=== PATIENT | female | born 1940 | race Caucasian/White ===

== ENCOUNTER 2018-12-30 11:04 | Outpatient (CLI) | payer MEDICARE, BC ==
[~2018-12-30] VITALS: Ht 170.2 cm; Wt 54.5 kg
--- NOTE | ~2018-12-30 | HEMODYNAMI ---
PATIENT:JAGJIT SRINIVASAN MEDICAL RECORD: [id number] : 40 LOCATION:[facility] ADMISSION DATE: 12/30/18 Generatedon:12/30/201813:05 Patient name: JAGJIT SRINIVASAN Patient #: [id number] SSN: D OB: 1940 Date of study: 12/30/2018 Page: Of Hemodynamic Procedure Report Patient Data Patient Demographics Procedure consent was obtained First Name: JAGJIT Gender: Female Last Name: ZARINA : 1940 Patient #: [id number] Age: 78 year(s) Race: Unknown Additional ID: [id number] Contact details Address: [address] [place] [address] State: [place] City: [place] Zip code: [address] Past Medical History Allergies: No known allergies Admission Admission Data Admission Date: 12/30/2018 Admission Time: 11:04 Procedure Procedure Types Cath Procedure Diagnostic Procedure ENZO Procedure Description Procedure Date Procedure Date: 12/30/2018 Procedure Start Time: 12:49 Procedure End Time: 12:58 Procedure Staff Name Function Kevin Andrew MD Performing Physician Marge Arias RT Monitor Cody Williamson RT Monitor Cosme San RN Nurse Uriel Lopez RN Local Bulk Driver Ramo Chapman Med Surg Nurse Alden Wilhelm MD Additional personnel Procedure Data Cath Procedure Estimated blood loss: 0 ml Procedure Complications No complications Procedure Medications Medication Administration Route Dosage Oxygen etCO2 Nasal cannula 2 l/min Refer to Anesthesia Notes for Sedation Medications Hurricaine [place] [address] Sprays Hemodynamics Rest Heart Rate: 63 (bpm) Snapshots Pre Cath Intra NCS Post Cath Vital Signs Time Heart Resp SPO2 etCO2 NIBP (mmHg) Rhythm Pain Sedation Rate (ipm) (%) (mmHg) Status Level (bpm) 12:45:15 63 20 96 0 159/89(116) NSR 0 (11) 10(A) , No pain 12:49:33 66 26 94 0 120/64(97) NSR 0 (11) 10(A) , No pain 12:53:39 72 19 100 0 134/73(100) NSR 0 (11) 9(A) , No pain 12:57:54 63 21 100 0 112/63(84) NSR 0 (11) 9(A) , No pain 12:59:45 61 22 100 0 124/62(93) NSR 0 (11) 9(A) , No pain 13:02:21 72 19 100 0 129/76(95) NSR 0 (11) 10(A) , No pain Medications Time Medication Route Dose Verified Delivered Reason Notes Effectiv eness by by 12:35:15 Oxygen etCO2 2 Kevin Aguiar used for Nasal l/min St Baron San RN procedure cannula MD 12:35:19 Refer to Kevin Aguiar Anesthesia St Baron San RN Notes for MD Sedation Medications 12:35:27 Hurricaine [address] Kevin Aguiar Per [place] Sprays [facility] Baron San RN physician MD Procedure Log Time Note 12:30:53 Uriel Lopez RN sent for patient. Start room use. 12:32:54 Time tracking: Regular hours (M-F 7:00 - 5:00) 12:32:58 Plan of Care:Hemodynamics will remain stable., Cardiac rhythm will remain stable., Comfort level will be maintained., Respiratory function will remain adequate., Patient/ family verbilizes understanding of procedure., Procedure tolerated without complication., Recovers from procedure without complications.. 12:35:15 Oxygen 2 l/min etCO2 Nasal cannula was administered by Cosme San RN; used for procedure; 12:35:19 Refer to Anesthesia Notes for Sedation Medications was administered by Cosme San RN; ; 12:35:27 Hurricaine Orlando 1 Sprays P.O. was administered by Cosme San RN; Per physician; 12:44:00 Patient received from Pre/Post Procedure Room to [facility] 1 Alert and oriented. Tansferred to table in Supine position. 12:44:02 Warm blankets applied, and rick hugger turned on for patient comfort. 12:44:02 Correct patient and procedure confirmed by team. 12:44:04 Signed procedure consent form obtained from patient. 12:44:04 ECG and BP/O2 sat monitors applied to patient. 12:44:07 Vital chart was started 12:44:10 Baseline sample Acquired. 12:44:14 Rhythm: sinus rhythm 12:44:16 Full Disclosure recording started 12:44:51 H&P Date Dictated: 12/23/2018 Within 30 days and on chart., H&P Addendum completed by physician on day of procedure. (MUST COMPLETE FOR ALL OUTPATIENTS). 12:44:53 Pre-procedure instructions explained to patient. 12:44:55 Family in waiting room. 12:44:57 Patient NPO since Midnight. 12:45:03 Patient allergic to No known allergies 12:45:06 Is the patient allergic to Iodine/contrast media? No. 12:45:07 Was the patient premedicated? Yes 12:45:12 Is patient on blood thinner?No 12:45:15 Patient diabetic? No. 12:45:21 Snore? Yes 12:45:23 Sleep apnea? No 12:45:27 Airway obstruction? No ? 12:45:36 Patient pain scale 0/10 ?. 12:45:49 IV patent on arrival in right forearm with 0.9% NaCl at KVO. 12:45:55 Lab results completed and on chart. 12:46:05 Alarms reviewed by R. N. 12:46:06 Sharps counted by scrub and verified by R.N. 12:46:07 Physician paged 12:48:48 Physician arrived 12:48:49 --------ALL STOP TIME OUT------ 12:48:49 Final Timeout: patient, procedure, and site verified with staff and physician. All members of the team are in agreement. 12:49:12 Fire Safety Assessment: A--An alcohol-based skin anteseptic being used preoperatively., C--Open oxygen or nitrous oxide is being used., E--There are other possible contributors. 12:49:17 Physical assessment completed. ASA score P 2 - A patient with mild systemic disease as per Kevin Andrew MD. 12:49:23 Sedation plan: IV Moderate Sedation Medication:Propofol 12:49:26 Alden Wilhelm MD present and monitoring patient for TIVA. 12:49:32 Procedure started. 12:49:48 Ramo Chapman Washroom Operator present for ENZO. 12:49:50 ENZO started. 12:56:28 ENZO completed. 12:56:33 Procedure ended.(Physican Out) 12:57:33 Sharps counted by scrub and verified by R.N. 12:57:49 Post-procedure physical assessment completed. ASA score P 2 - A patient with mild systemic disease as per Kevin Andrew MD. 12:57:54 Post procedure rhythm: unchanged. 12:57:58 Estimated blood loss: 0 ml 12:58:01 Post procedure instruction explained to patient.Patient verbalizes understanding. 12:58:10 Procedure and supply charges have been captured, reviewed, submitted and are correct. 12:58:32 Procedure Complication : No complications 12:58:35 Vital chart was stopped 12:58:38 See physician's report for complete and final results. 12:58:40 Report given to Pre/Post Procedure Room. 12:58:47 Patient transfered to Pre/Post Procedure Room with Stretcher. 12:58:53 Procedure ended. 12:58:53 Full Disclosure recording stopped 13:01:39 End room use (Document Last) Signature Audit [place] Stage Time Signature Unsigned Intra-Procedure 12/30/2018 Marge Arias 1:05:41 PM RT(R) Signatures Monitor : Marge Arias Signature : RT Date : Time : Monitor : Cody Williamson RT Signature : Date : Time : [address] [address]
[2018-12-30] MEDS ORDERED: NORVASC5 MG PO (11:26)
[2018-12-30] MEDS ORDERED: TENORMIN50 MG PO (11:26)
[2018-12-30] MEDS ORDERED: XANAX0.25 MG PO (11:27)
[2018-12-30 11:43] VITALS: BP 146/78; Ht 170.2 cm; Wt 54.5 kg
[2018-12-30 11:50] LABS: BASOPHILS 0.8 % (0-2); HEMATOCRIT 36.2 % (36.0-48.0); HEMOGLOBIN 12.2 g/dL (12-16); IMMATURE GRANULOCYTES 0.2 % (0-5); LYMPHOCYTES 37.2 % (15-50); MCH 34.5 pg (26.0-34.0); MCHC 33.7 g/dL (31.0-37.0); MCV 102.3 fL (80.0-100.0); MEAN PLATELET VOLUME 9.9 fL (7.4-10.4); MONOCYTES 7.6 % (2-11); NEUTROPHILS 53.2 % (40-80); PLATELET COUNT 197 10x3/uL (130-400); RBC 3.54 10x6/uL (4.00-5.40); RDW 14.7 % (11.5-14.5); WBC 6.2 10x3/uL (4.8-10.8)
[2018-12-30 12:02] LABS: INR 1.15 (0.85-1.17); PROTIME 14.2 SECONDS (11.6-15.0)
[2018-12-30 12:06] LABS: ANION GAP 16.8 mmol/L (8-16); CALCIUM 9.3 mg/dL (8.5-10.1); CARBON DIOXIDE 25.5 mmol/L (21.0-32.0); CREATININE - SERUM 1.4 mg/dL (0.6-1.3); POTASSIUM - SERUM 4.3 mmol/L (3.5-5.1)
--- NOTE | 2018-12-30 13:16 | NUR ---
RECIEVED TO ROOM VIA STRETCHER FROM [facility] [employer] WITH DR MAURICIO AT BEDSIDE. PATIENT WILL BE NPO X 1 HOUR. HR 76 NO DISTRESS NOTED
--- NOTE | 2018-12-30 13:39 | NUR ---
SITTING WITH HOB UP 30 DEGREES. PATIENT VOICED NO PAIN OR NEEDS. VSS AND FAMILY IS PRESENT AT BEDSIDE
--- NOTE | 2018-12-30 13:46 | NUR ---
PATIENT VOICED NO PAIN OR NEEDS. VSS AND NO DISTRESS
--- NOTE | 2018-12-30 13:51 | NUR ---
SANDWICH AND SODA TO BEDSIDE PATIENT TOLERATING SIPS OF PO FLUIDS NO NAUSEA. DENIED DIFFICULTY SWALLOWING
--- NOTE | 2018-12-30 14:00 | NUR ---
VERBAL AND WRITTEN DISCHARGE GONE OVER WITH PATIENT AND FAMILY. PIV REMOVED WITH DRESSING APPLIED. PATIENT UP TO GET DRESSED FOR TRANSPORT HOME
--- NOTE | 2018-12-30 14:21 | NUR ---
PATIENT LEFT VIA WC TO PARKING FOR TRANSPORT HOME NO DISTRESS
--- NOTE | 2019-01-01 09:01 | TEE ---
PATIENT:JAGJIT SRINIVASAN MEDICAL RECORD: [id number] LOCATION:[facility] AGE OF PATIENT: 78 ADMISSION DATE: 12/30/18 SEX: F REFERRING PHYSICIAN: INTERPRETING PHYSICIAN: LISA MAURICIO MD TRANSESOPHAGEAL ECHOCARDIOGRAM Date: 12/30/18 ENZO CHARGE Y INDICATIONS: ASSESS MITRAL REGURG PREMEDICATIONS: PATIENT'S RESPONSE PROCEDURE DOPPLER MEASUREMENTS: LVIT LA PA RA LVOT RVOT Asc. Ao AV Gradient Peak AV Mean AV Area MV Gradient Peak MV Mean MV Area INTERPRETATION: Doppler: 2-D: COLOR FLOW DOPPLER NORMAL SALINE STUDY: MISCELLANOUS: DIAGNOSIS: PLAN: Master Brewer:3 Dr. Batista Commissary Assistant: Liz DUMONT COMMENTS: AYESHA PATIENT DATE OF SERVICE: 12/30/2018 TRANSESOPHAGEAL REPORT After general sedation via TIVA via anesthesia, transesophageal Omniplane probe was placed into the distal esophagus and proximal stomach without difficulty. FINDINGS: No LVH. LV internal dimensions are normal. LV is somewhat hyperdynamic with EF 60% or better. Aortic valve is tricuspid with good valve TRANSESOPHAGEAL ECHOCARDIOGRAM REPORT [id number] TYSHAWN SRINIVASAN excursion and trivial AI by color flow imaging. Left atrium appears in normal dimensions. Left atrial appendage is well visualized with contractility. No evidence of thrombus. 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 At least moderate MR is present. This may be underestimated with color flow aliasing noted as well. Right-sided chambers are grossly normal. Mild TR is noted. No evidence of ASD or VSD via spontaneous contrast study. TRANSINT:[id number] Voice Confirmation ID: [id number] DOCUMENT ID: [id number] at [id number] CC: [id number] DICTATION DATE: 12/30/18 1303 ADJUNCT PHYSICS INSTRUCTOR: 12/30/18 1336 DEP CLI 12/30/18 [place] [id number] [place] [id number]
== END 2018-12-30 14:22 | disposition home or self-care (01) ==
LOC: D.CATH 11:04
PROVIDERS: Internal Medicine Cardiovascular Disease
DX: I34.0 Nonrheumatic mitral (valve) insufficiency (principal)

== ENCOUNTER → 2019-09-25 12:02 | Outpatient (CLI) | payer MEDICARE, BC ==
[2018-12-30 11:43] VITALS: BMI 18.8
[~2019-09-25 12:02] MED LIST: NORVASC5 MG PO; TENORMIN50 MG PO; XANAX0.25 MG PO
== END | disposition home or self-care (01) ==
LOC: D.HCCECHO 12:02
PROVIDERS: ATTEND Internal Medicine Cardiovascular Disease
DX: I34.0 Nonrheumatic mitral (valve) insufficiency (principal)